=== PATIENT | male | born 1965 | race Caucasian/White ===

== ENCOUNTER 2016-09-26 16:45 | Emergency (ER) | payer SELFPAY ==
[2016-09-26 16:53] VITALS: BP 123/89; PULSE 77; TEMP 98; BMI 28.7
[2016-09-26] MEDS ORDERED: DIPHTH,PERTUSS(ACELL),TET 0.5 ML DISP.SYRIN IM ONE (16:55)
[2016-09-26] MEDS ORDERED: LIDOCAINE 1%/EPI 1:100000 (50 ML MULTI DOSE VIAL) INF ONE (16:56)
--- NOTE | 2016-09-26 17:08 | PDOC ---
History of Present Illness - General History Source: Patient Exam Limitations: No Limitations - History of Present Illness Initial Comments: 09/26/16 17:13 Patient is a 50 year old male with no pmhx who presents to the ED with right knee laceration. Patient states that he was using grinding stone as he lost control and it was stuck in his pants and cut his right knee. He denies any limited ROM or pain. The patient is unsure of his last Tetanus. PSH - epigastric hernia repair, deviated septum ALL - NKA <Radha Emery - Last Filed: 09/26/16 17:55> - General History Source: Patient Exam Limitations: No Limitations <Tawny Vaughn - Last Filed: 09/30/16 08:31> - General Chief Complaint: Injury Stated Complaint: RT KNEE LACERATION Time Seen by Provider: 09/26/16 16:49 Past History <Radha Emery - Last Filed: 09/26/16 17:55> - Surgical History Abdominal Surgery: Yes (EPIGASTRIC HERNIA) - Psycho/Social/Smoking Cessation Hx Anxiety: No Suicidal Ideation: No Smoking History: Current every day smoker Have you smoked in the past 12 months: Yes Number of Cigarettes Smoked Daily: 20 Information on smoking cessation initiated: Yes 'Breaking Loose' booklet given: 09/26/16 Hx Alcohol Use: ("couple of drinks daily") <Tawny Vaughn - Last Filed: 09/30/16 08:31> - Past Medical History Allergies/Adverse Reactions: Allergies Allergy/AdvReac Type Severity Reaction Status Date / Time No Known Allergies Allergy Verified 09/26/16 16:49 Home Medications: Ambulatory Orders Cephalexin [Keflex] 250 mg PO Q6H #28 capsule 09/26/16 Review of Systems - Review of Systems Able to Perform ROS?: Yes Comments:: 09/26/16 17:13 GENERAL/CONSTITUTIONAL: No: fever, chills, weakness, loss of appetite. HEAD, EYES, EARS, NOSE AND THROAT: No: change in vision, ear pain, discharge, sore throat, throat swelling. CARDIOVASCULAR: No: chest pain, lightheadedness, palpitations, syncope RESPIRATORY: No: cough, shortness of breath, wheezing, hemoptysis, stridor. GASTROINTESTINAL: No: nausea, vomiting, abdominal cramping, diarrhea, rectal bleeding, constipation. GENITOURINARY: No: dysuria, hematuria, frequency, urgency, flank pain. MUSCULOSKELETAL: No: back pain, neck pain, joint pain, muscle swelling or pain SKIN: Yes: right knee laceration No: pallor, rash or easy bruising. NEUROLOGIC: No: headache, vertigo, paresthesias, weakness ENDOCRINE: No: unexplained weight gain or loss HEMATOLOGIC/LYMPHATIC: No: anemia, easy bleeding, swelling nodes <Radha Emery - Last Filed: 09/26/16 17:55> *Physical Exam - Vital Signs Last Vital Signs Temp Pulse Resp BP Pulse Ox 98 F 77 18 123/89 95 09/26/16 16:45 09/26/16 16:45 09/26/16 16:45 09/26/16 16:45 09/26/16 16:45 - Physical Exam Comments: 09/26/16 17:55 GENERAL: The patient is in no acute distress. HEAD: Normal with no signs of trauma. EYES: PERRLA, EOMI, sclera anicteric, conjunctiva clear. ENT: Ears normal, nares patent, oropharynx clear without exudates. Moist mucous membranes. NECK: Normal range of motion, supple without lymphadenopathy, JVD, or masses. LUNGS: Breath sounds equal, clear to auscultation bilaterally. No wheezes, and no crackles. HEART:Regular rate and rhythm, normal S1 and S2 without murmur, rub or gallop. ABDOMEN: Soft, nontender, normoactive bowel sounds. No guarding, no rebound. EXTREMITIES: Normal range of motion, no edema. No clubbing or cyanosis. No erythema, or tenderness. NEUROLOGICAL: Cranial nerves II through XII grossly intact. Normal speech. No focal neurological deficits. MUSCULOSKELETAL: Back nontender to palpation, no CVA tenderness SKIN: (+)3.5 cm laceration to the right knee and medial superficial laceration 1 cm. Warm, Dry, normal turgor, no rashes noted. <Radha Emery - Last Filed: 09/26/16 17:55> - Vital Signs Last Vital Signs Temp Pulse Resp BP Pulse Ox 98 F 77 18 123/89 95 09/26/16 16:45 09/26/16 16:45 09/26/16 16:45 09/26/16 16:45 09/26/16 16:45 <Tawny Vaughn - Last Filed: 09/30/16 08:31> Procedures - Laceration/Wound Repair Right Anterior Leg Wound Length: 2.6 to 5.0 cm Wound Explored: no foreign body present Wound's Depth, Shape: linear Irrigated w/ Saline: Yes Betadine Prep: No Anesthesia: 2% Lidocaine Amount of Anesthetic (ccs): 5 Wound Debrided: minimal Wound Repaired With: Sutures Suture Size/Type: 3:0 Number of Sutures: 5 Layer Closure: No Sterile Dressing Applied: Yes Progress: 09/30/16 08:31 pt tolerated procedure well no bleeding or swelling noted after procedure <Tawny Vaughn - Last Filed: 09/30/16 08:31> ED Treatment Course - RADIOLOGY Radiology Studies Ordered: Category Date Time Status KNEE 2 POS-RIGHT [RAD] Stat Radiology 09/26/16 16:55 Ordered <Tawny Vaughn - Last Filed: 09/30/16 08:31> Medical Decision Making - Medical Decision Making 09/26/16 17:04 A portion of this note was documented by scribe services under my direction. I have reviewed the details of the note, within reason, and agree with the documentation with the following case summary and management plan written by me. Nursing documentation reviewed and incorporated into medical decision making Right knee laceration Injury with stone precision jig grinder No pain No limitation in range of motion Will do x ray Will give Boostrix Will suture Return to the ER for suture removal 10 - 14 days 2 lacerations: 1 laceration = 3.5 cm 2nd superficial laceration parallel to 1st laceration, it measures 1 cm, does not gape PT refused X ray Pt understands the purpose of xray to evaluate for foreign body Laceration repaired with 5 sutures Pt counseled re: signs of infection Pt should return to the ER for any signs of infection - surrounding erythema, drainage, warmth, increased pain <Tawny Vaughn - Last Filed: 09/30/16 08:31> *DC/Admit/Observation/Transfer - Attestations Scribe Attestion: 09/26/16 17:13 Documentation prepared by AZALIA Han, acting as medical unit secretary for Tawny Vaughn MD. <Radha Emery - Last Filed: 09/26/16 17:55> - Discharge Dispostion Admit: No <Tawny Vaughn - Last Filed: 09/30/16 08:31> Diagnosis at time of Disposition: Laceration of right knee without complication Qualifiers: Encounter type: initial encounter Qualified Code(s): S81.011A - Laceration without foreign body, right knee, initial encounter - Discharge Dispostion Disposition: HOME Condition at time of disposition: Stable - Prescriptions Prescriptions: Cephalexin [Keflex] 250 mg PO Q6H #28 capsule - Patient Instructions Printed Discharge Instructions: DI for Suture Removal Additional Instructions: Keep the incision clean and dry for 24 hours. After 24 hours, you may allow the soap and water to rinse off your incision. Pat the incision dry with a clean cloth. Apply a small amount of bacitracin onto the incision. Cover the incision loosely with a bandaid. Take tylenol/motrin as needed for pain. Return to the ER if you notice red streaks, increase redness/swelling/severe pain to the incision. Suture removal in 10 days.
== END 2016-09-26 17:43 | disposition home or self-care (01) ==
LOC: FER 16:45
PROC: 0HQKXZZ Repair Right Lower Leg Skin, External Approach (ICD-10-PCS; principal; 2016-09-26)
DX: S81.011A Laceration without foreign body, right knee, initial encounter (principal); W29.8XXA Contact with other powered hand tools and household machinery, initial encounter; Y93.89 Activity, other specified; Y92.9 Unspecified place or not applicable; F17.210 Nicotine dependence, cigarettes, uncomplicated
CPT/HCPCS: 90715; 99283-25